=== PATIENT | female | born 1990 | race Caucasian/White ===

== ENCOUNTER 2021-11-27 20:50 | Emergency (ER) | payer OTHER ==
[2021-11-27] MEDS: Amoxicillin 500 MG Cap PO ONE (21:55)
[2021-11-27] MEDS: Acetaminophen/HYDROcodone 325-5 MG Tab PO ONE (21:56)
== END 2021-11-27 22:06 | disposition home or self-care (01) ==
LOC: SUPCPDRO 20:50 → KA.ED 20:50
DX: K04.7 Periapical abscess without sinus (principal); Z79.899 Other long term (current) drug therapy
CPT/HCPCS: 99282; 99283; A9270-GY